=== PATIENT | male | born 1955 | race Two or more races ===

== ENCOUNTER 2020-03-11 09:42 | Day surgery (SDC) | payer OTHER | END 2020-03-11 13:55 | disposition home or self-care (01) | LOC: AMB-ENDOS 09:42 | PROVIDERS: ATTEND Colon & Rectal Surgery | DX: D13.1 Benign neoplasm of stomach (principal); D12.3 Benign neoplasm of transverse colon; D12.4 Benign neoplasm of descending colon; K44.9 Diaphragmatic hernia without obstruction or gangrene; K64.1 Second degree hemorrhoids ==

== ENCOUNTER 2021-03-03 08:51 | Day surgery (SDC) | payer OTHER | END 2021-03-03 13:40 | disposition home or self-care (01) | LOC: AMB-ENDOS 08:51 | PROVIDERS: ATTEND Colon & Rectal Surgery | DX: K62.89 Other specified diseases of anus and rectum (principal); K64.1 Second degree hemorrhoids; Z20.822 Contact with and (suspected) exposure to COVID-19 ==